=== PATIENT | male | born 1990 | race Hispanic/Latino ===

== ENCOUNTER 2019-10-13 04:34 | Emergency (ER) | payer SELFPAY | END 2019-10-13 04:50 | disposition home or self-care (01) | LOC: ERS 04:34 | DX: M25.462 Effusion, left knee (principal); M25.562 Pain in left knee | CPT/HCPCS: 99283 ==

== ENCOUNTER 2020-09-24 16:12 | Emergency (ER) | payer SELFPAY ==
[2020-09-24 16:57] LABS: #Basophils 0.1 thou/uL (0.0-0.2); #Eosinphils 0.2 thou/uL (0.0-0.7); #Lymphocytes 1.8 thou/uL (1.20-3.40); #Monocytes 0.4 thou/uL (0.11-0.59); #Neutrophils 4.3 thou/uL (1.40-6.50); %Basophils 0.9 % (0.0-1.0); %Eosinophils 3.3 % (0.0-10.0); %Lymphocytes 26.1 % (21.0-51.0); %Monocytes 5.9 % (0.0-10.0); %Neutrophils 63.7 % (42.0-75.0); Hemoglobin 15.2 g/dL (14.0-18.0); Mean Corpuscular HGB CONC 35.8 g/dL (32.0-36.0); Mean Corpuscular Hemoglobin 32.1 pg (27.0-31.0); Mean Corpuscular Volume 89.8 fL (78.0-98.0); Mean Platelet Volume 8.1 fL (7.4-10.4); Platelet Count 215 thou/uL (130-400); RBC Distribution Width 12.2 % (11.5-14.5); Red Blood Cell (RBC) Count 4.74 mill/uL (4.70-6.10); White Blood Cell (WBC) Count 6.8 thou/uL (4.8-10.8)
--- NOTE | 2020-09-24 16:57 | RAD ---
XR Chest 1 View Portable HISTORY: Chest pain, palpitations COMPARISON: None FINDINGS: The heart size is normal. The lungs are well expanded without focal areas of consolidation, pneumothorax or pleural effusions. IMPRESSION: No radiographic evidence of acute cardiopulmonary process.
[2020-09-24 17:18] LABS: ALT (SGPT) 14 U/L (8-55); AST (SGOT) 15 U/L (5-34); Albumin 4.6 g/dL (3.5-5.0); Alkaline Phosphatase 67 U/L (40-110); Anion Gap 16 mmol/L (10-20); BUN (Urea Nitrogen) 10 mg/dL (8.9-20.6); Bilirubin, Total 0.9 mg/dL (0.2-1.2); Calc. Creatinine Clearance 0 mL/min (70-130); Calcium 9.7 mg/dL (7.8-10.44); Carbon Dioxide 24 mmol/L (22-29); Chloride 107 mmol/L (98-107); Estimated GFR-MDRD Greater than 90; Globulin 3.1 g/dL (2.4-3.5); Glucose 91 mg/dL (70-105); Potassium 3.5 mmol/L (3.5-5.1); Protein, Total 7.7 g/dL (6.0-8.3); Sodium 143 mmol/L (136-145)
== END 2020-09-24 18:33 | disposition home or self-care (01) ==
LOC: ERS 16:12
DX: R00.2 Palpitations (principal)
CPT/HCPCS: 71045; 80053; 84443; 84484; 85025; 93005

== ENCOUNTER 2020-10-25 13:03 | Emergency (ER) | payer SELFPAY | END 2020-10-25 14:58 | disposition home or self-care (01) | LOC: ERS 13:03 | DX: K62.5 Hemorrhage of anus and rectum (principal) | CPT/HCPCS: 99283 ==

== ENCOUNTER 2020-11-06 19:48 | Emergency (ER) | payer SELFPAY | END 2020-11-06 21:53 | disposition home or self-care (01) | LOC: ERS 19:48 | DX: J06.9 Acute upper respiratory infection, unspecified (principal); J45.909 Unspecified asthma, uncomplicated | CPT/HCPCS: 99283 ==

== ENCOUNTER 2021-02-11 01:47 | Emergency (ER) | payer SELFPAY | END 2021-02-11 02:25 | disposition home or self-care (01) | LOC: ERS 01:47 | DX: J02.9 Acute pharyngitis, unspecified (principal); J45.909 Unspecified asthma, uncomplicated | CPT/HCPCS: 99281 ==

== ENCOUNTER 2021-02-21 17:59 | Emergency (ER) | payer SELFPAY | END 2021-02-21 19:30 | disposition home or self-care (01) | LOC: ERS 17:59 | DX: R07.89 Other chest pain (principal) | CPT/HCPCS: 71046 ==

== ENCOUNTER 2021-03-06 23:05 | Emergency (ER) | payer SELFPAY | END 2021-03-07 00:53 | disposition home or self-care (01) | LOC: ERS 23:05 | DX: M62.838 Other muscle spasm (principal) | CPT/HCPCS: 99281 ==

== ENCOUNTER 2021-04-13 18:39 | Emergency (ER) | payer SELFPAY | END 2021-04-13 20:05 | disposition home or self-care (01) | LOC: ERS 18:39 | DX: R07.9 Chest pain, unspecified (principal); J45.909 Unspecified asthma, uncomplicated | CPT/HCPCS: 93005 ==

== ENCOUNTER 2021-04-26 11:16 | Outpatient (CLI) | payer OTHER | END 2021-04-26 11:17 | disposition home or self-care (01) | LOC: BICRAD 11:16 | PROVIDERS: ATTEND Nurse Practitioner Family | DX: M79.672 Pain in left foot (principal) ==

== ENCOUNTER 2021-09-03 17:11 | Emergency (ER) | payer SELFPAY ==
[2021-09-03 18:03] LABS: #Eosinphils 0.2 thou/uL (0.0-0.7); #Lymphocytes 2.4 thou/uL (1.20-3.40); #Monocytes 0.5 thou/uL (0.11-0.59); #Neutrophils 4.3 thou/uL (1.40-6.50); %Basophils 0.3 % (0.0-1.0); %Eosinophils 2.3 % (0.0-10.0); %Monocytes 6.2 % (0.0-10.0); %Neutrophils 59.2 % (42.0-75.0); Mean Corpuscular HGB CONC 33.7 g/dL (32.0-36.0); Mean Corpuscular Hemoglobin 30.8 pg (27.0-31.0); Mean Corpuscular Volume 91.2 fL (78.0-98.0); Mean Platelet Volume 8.2 fL (7.4-10.4); Platelet Count 230 thou/uL (130-400); RBC Distribution Width 12.2 % (11.5-14.5); Red Blood Cell (RBC) Count 4.88 mill/uL (4.70-6.10); White Blood Cell (WBC) Count 7.3 thou/uL (4.8-10.8)
[2021-09-03 18:31] LABS: ALT (SGPT) 16 U/L (8-55); AST (SGOT) 17 U/L (5-34); Albumin 4.6 g/dL (3.5-5.0); Alkaline Phosphatase 63 U/L (40-110); Anion Gap 14 mmol/L (10-20); BUN (Urea Nitrogen) 7 mg/dL (8.9-20.6); Bilirubin, Total 0.8 mg/dL (0.2-1.2); Calc. Creatinine Clearance 0 mL/min (70-130); Calcium 9.7 mg/dL (7.8-10.44); Carbon Dioxide 24 mmol/L (22-29); Chloride 109 mmol/L (98-107); Globulin 3.2 g/dL (2.4-3.5); Glucose 92 mg/dL (70-105); Potassium 3.9 mmol/L (3.5-5.1); Protein, Total 7.8 g/dL (6.0-8.3); Sodium 143 mmol/L (136-145)
== END 2021-09-03 20:26 | disposition home or self-care (01) ==
LOC: ERS 17:11
DX: F41.1 Generalized anxiety disorder (principal); J45.909 Unspecified asthma, uncomplicated
CPT/HCPCS: 36415; 71045; 80053; 84484; 85025; 93005

== ENCOUNTER 2021-11-06 18:14 | Emergency (ER) | payer SELFPAY | END 2021-11-06 20:06 | disposition home or self-care (01) | LOC: ERS 18:14 | DX: R42 Dizziness and giddiness (principal); J45.909 Unspecified asthma, uncomplicated | CPT/HCPCS: 36416; 71045; 93005 ==